=== PATIENT | female | born 1935 | race Caucasian/White ===

== ENCOUNTER 2022-05-03 20:40 | Emergency (ER) | payer MEDICARE, OTHER ==
[2022-05-03] MEDS ORDERED: TYLENOL 325 MG PO ONE (20:45)
[2022-05-03 20:53] VITALS: BP 170/77; PULSE 98; O2SAT 96
[2022-05-03] MEDS ORDERED: TYLENOL 325 MG ONE (20:53)
--- NOTE | 2022-05-03 21:24 | ERPHSYRPT ---
- History of Present Illness Time Seen by Provider: 05/03/22 20:50 Source: patient Exam Limitations: no limitations Patient Subjective Stated Complaint: " I got up and felt dizzy and fell a couple weeks ago and my knee hasn't stopped hurting. I can barely walk. " Triage Nursing Assessment: Pt presents to ER with complaints of right knee pain x 2 weeks that has increasingly got worse. Pt experienced a fall associated with dizziness 2 weeks ago. Left knee is bruised but patient denies pain to left knee. Right knee appears swollen and tender. Limited ROM. States almost non- weight bearing. Pt is alert and oriented x 3. Skin is pink, warm, and dry. Respirations are easy at this time. Rates pain 10/10 scale. Arrives to ER from home by ambulance. Has been evaluated since fall previously since this visit. Physician History: Patient is a 86-year-old female presents to our ED via EMS for evaluation of right knee pain. Patient states she fell approximately 2 weeks ago. Patient was ambulating from her bed to her walker and felt dizzy at that time and fell. Patient injured both knees. However pain in her right knee has gotten progressively worse over the past couple weeks. Patient has been evaluated since her fall. Patient states is difficult for her to weight-bear weight due to pain. Pain described as an ache that is localized. No radiation. Pain worse with movement, weightbearing and palpation. Pain improved with rest. Right knee is visibly swollen. No other injuries reported. No BHT or LOC. No neck pain. Cervical spine cleared clinically. No chest pain or shortness of breath. No nausea vomiting or diaphoresis. No numbness tingling weakness. Patient voices no other complaint or concerns at this time. Method of Injury: fell Occurred: other (2 weeks ago) Quality: constant Severity of Pain-Max: moderate Severity of Pain-Current: mild Lower Extremities Pain: knee: right Modifying Factors: Improves With: nothing Associated Symptoms: none Allergies/Adverse Reactions: No Known Drug Allergies Allergy (Verified 05/03/22 20:53) Home Medications: Metformin HCl 500 mg [Glucophage 500 MG] 500 mg PO BID 11/10/13 [History] lisinopriL [Lisinopril] 5 mg PO DAILY 11/10/13 [History] Tramadol HCl 50 mg [Ultram 50 mg] 50 mg PO TID PRN 05/03/22 [History] Triamterene/Hydrochlorothiazid [Maxzide 37.5 mg-25 mg Tablet] 0.5 tab PO DAILY 05/03/22 [History] Hx Tetanus, Diphtheria Vaccination/Date Given: Yes Hx Influenza Vaccination/Date Given: Yes Hx Pneumococcal Vaccination/Date Given: Yes Immunizations Up to Date: Yes Travel Risk - International Travel Have you traveled outside of the country in past 3 weeks: No - Coronavirus Screening Are you exhibiting any of the following symptoms?: No - Vaccine Status Have you recieved a Covid-19 vaccination: Yes [employer]: Moderna - Vaccination Dates Date of 2cond Vaccination (if applicable): 2020 - Review of Systems Constitutional: No Symptoms, No Fever, No Chills Eyes: No Symptoms Ears, Nose, & Throat: No Symptoms Respiratory: No Symptoms, No Cough, No Dyspnea Cardiac: No Symptoms, No Chest Pain, No Edema, No Syncope Abdominal/Gastrointestinal: No Symptoms, No Abdominal Pain, No Nausea, No Vomiting, No Diarrhea Genitourinary Symptoms: No Symptoms, No Dysuria Musculoskeletal: No Symptoms, No Back Pain, No Neck Pain Skin: No Symptoms, No Rash Neurological: No Symptoms, No Dizziness, No Focal Weakness, No Sensory Changes Psychological: No Symptoms Endocrine: No Symptoms Hematologic/Lymphatic: No Symptoms Immunological/Allergic: No Symptoms All Other Systems: Reviewed and Negative - Past Medical History Pertinent Past Medical History: Yes Neurological History: No Pertinent History ENT History: Cataracts Cardiac History: Hypertension Respiratory History: No Pertinent History Endocrine Medical History: Diabetes Type II Musculoskeletal History: Osteoporosis GI Medical History: Gallbladder Disease, Ulcer History: No Pertinent History Psycho-Social History: No Pertinent History Female Reproductive Disorders: Breast Cancer Other Medical History: HX OF BREAST CA X 25 YEARS - Past Surgical History Past Surgical History: Yes Neuro Surgical History: No Pertinent History Cardiac: No Pertinent History Respiratory: No Pertinent History Gastrointestinal: Appendectomy, Cholecystectomy Genitourinary: No Pertinent History Musculoskeletal: No Pertinent History Female Surgical History: Mastectomy - Social History Smoking Status: Never smoker Exposure to second hand smoke: No Drug Use: none Patient Lives Alone: No - Nursing Vital Signs Nursing Vital Signs: Initial Vital Signs Temperature 98.4 F 05/03/22 20:41 Pulse Rate 98 H 05/03/22 20:41 Respiratory Rate 18 05/03/22 20:41 Blood Pressure 170/77 05/03/22 20:41 O2 Sat by Pulse Oximetry 96 05/03/22 20:41 Pain Scale Pain Intensity 10 - Physical Exam General Appearance: no apparent distress, alert Eyes, Ears, Nose, Throat Exam: normal ENT inspection, TMs normal, pharynx normal, moist mucous membranes Neck Exam: normal inspection, non-tender, supple, full range of motion Cardiovascular/Respiratory Exam: chest non-tender, normal breath sounds, regular rate/rhythm, no respiratory distress Gastrointestinal/Abdominal Exam: non-tender, soft, guarding Back Exam: normal inspection, normal range of motion, No vertebral tenderness Hips Exam: bilateral: non-tender, normal inspection, normal range of motion, no evidence of injury Legs Exam: bilateral leg: non-tender, normal inspection, normal range of motion, no evidence of injury Knees Exam: right knee: swelling (Right knee effusion. Overlying soft tissue intact. No signs of trauma. No deformities. Extremity neurovascular intact distally. Compartments are soft. Cap refill less than 2 seconds.), left knee: non-tender, normal inspection, normal range of motion, no evidence of injury Ankle Exam: bilateral ankle: non-tender, normal inspection, normal range of motion, no evidence of injury Foot Exam: bilateral foot: non-tender, normal inspection, normal range of motion, no evidence of injury Neuro/Tendon Exam: normal sensation, normal motor functions Mental Status Exam: alert, oriented x 3, cooperative Skin Exam: normal color, warm, dry SpO2 Interpretation: normal SpO2: 96 O2 Delivery: Room Air - Course Nursing assessment & vital signs reviewed: Yes - Radiology Exams Knee X-ray Interpretation: Interpreted by me (Severe tricompartmental degenerative arthritis. Osteopenia. No fracture dislocations. Knee effusion observed) Ordered Tests: Active Orders 24 hr Category Date Time Status KNEE (3 VIEWS) Stat Exams 05/03/22 20:44 Taken Medication Summary Discontinued Medications Generic Name Dose Route Start Last Admin Trade Name Helen PRN Reason Stop Dose Admin Acetaminophen 975 mg 05/03/22 20:45 05/03/22 20:54 Acetaminophen 325 Mg Tablet PO 05/03/22 20:46 975 mg STAT ONE Administration Acetaminophen Confirm 05/03/22 20:53 Acetaminophen 325 Mg Tablet Administered 05/03/22 20:54 Dose 975 mg .ROUTE .STK-MED ONE - Progress Progress: improved Progress Note: Patient reassessed. Pain improved. X-ray negative for fracture dislocation. Severe tricompartmental arthritic changes observed along with a knee effusion osteopenia. No fracture dislocations. Patient's fall was 2 weeks ago. Patient states it was due to transient dizziness from standing. She has since been examined by her primary care provider. Patient has not experienced a recurrence of dizziness weakness or any other concerning symptomology since. Patient is here for her right knee pain. No indication for further work-up at this time. Will discharge patient home. Patient will be referred to orthopedic clinic for further evaluation and treatment of her pain and knee effusion. Plan of care discussed with patient. She agrees to follow-up with orthopedics tomorrow as planned. She voices no other complaints or concerns at this time. Portions of this note were created with voice recognition technology. There may be grammatical, spelling, punctuation or sound alike errors 05/03/22 21:27 Counseled pt/family regarding: diagnosis, need for follow-up, rad results - Departure Departure Disposition: Home Clinical Impression: Tricompartment degenerative joint disease of knee, Osteopenia, Knee effusion, right Condition: Stable Critical Care Time: No Referrals: RAIN BENITES [Primary Care Provider] - Follow up/PCP as directed Instructions: Knee Pain (DC) Additional Instructions: Discharge/Care Plan JEANINE MAZA was seen on 05/03/22 in the Emergency Room. The patient was counseled regarding Diagnosis,Lab results, Imaging studies, need for follow up and when to return to the Emergency Room. Prescriptions given: Discharge Note I have spoken with the patient and/or caregivers. I have explained the patient's condition, diagnosis and treatment plan based on the information available to me at this time. I have answered the patient's and/or caregiver's questions and addressed any concerns. The patient and/or caregivers have as good understanding of the patient's diagnosis, condition and treatment plan as can be expected at this point. The vital signs have been stable. The patient's condition is stable and appropriate for discharge from the emergency department. The patient will pursue further outpatient evaluation with the primary care physician or other designated or consulting physician as outlined in the discharge instructions. The patient and/or caregivers are agreeable to this plan of care and follow-up instructions have been explained in detail. The patient and/or caregivers have received these instruction. The patient/and or caregivers are aware that any significant change in condition or worsening of symptoms should prompt an immediate return to this or the closest emergency department or call 911.
[2022-05-03] MEDS ORDERED: MORPHINE SULFATE 4 MG INJ IM ONE (23:02)
[2022-05-03] MEDS ORDERED: MORPHINE SULFATE 4 MG INJ ONE (23:05)
--- NOTE | 2022-05-04 08:55 | XRAY ---
Indication: Pain following fall. Comparison: None 3 view right knee demonstrates osteopenia, moderate/advanced tricompartmental degenerative changes, nonspecific effusion, and scattered vascular calcifications. No other bony, articular, or soft tissue abnormalities. Comment: Preliminary interpretation made by [facility]. No critical discrepancy.
== END 2022-05-03 23:48 | disposition home or self-care (01) ==
LOC: ED 20:40
DX: M17.11 Unilateral primary osteoarthritis, right knee (principal); M25.461 Effusion, right knee; M25.561 Pain in right knee; I10 Essential (primary) hypertension; E11.9 Type 2 diabetes mellitus without complications; Z79.84 Long term (current) use of oral hypoglycemic drugs; Z79.891 Long term (current) use of opiate analgesic; Z79.899 Other long term (current) drug therapy
CPT/HCPCS: 73562; 96372; 99283; J2270; A9270-GY